=== PATIENT | female | born 1960 | race Caucasian/White ===

== ENCOUNTER 2017-02-16 22:22 | Inpatient (IN) | payer OTHER ==
--- NOTE | ~2017-02-16 | CN ---
Consultation Report [place] [id number] [place]. [address] NAME: GRISELDA ROCK : 58 STATUS : ADM IN [facility]#: [id number] AGE: 56 ADM/REG DATE : 02/17/17 MR#: [id number] REPORT SERV DATE: 02/20/17 DICTATED BY: MICHAEL LANZA DATE: 02/20/17 REPORT STATUS : Draft TRANSCRIBED BY: GLORIA DATE: 02/20/17 CONSULTATION. DATE OF CONSULTATION: Ms. Griselda Rock is a 56-year-old female with a long history of hypertension with left ventricle hypertrophy, who now enters with lower extremity infection, admitted directly to Podiatry. CVD PHYSICIAN: Dr. Schmidt. FAMILY PHYSICIAN: Dr. Katherine Tejeda. HISTORY OF PRESENT ILLNESS: Ms. Rock is admitted directly from Podiatry for cellulitis to the right lower extremity with history of diabetes. We are following her for hypertension with left ventricular hypertrophy. REVIEW OF SYSTEMS: Negative for chest pain, chest discomfort, syncope, palpitations, orthopnea, change in lower extremity edema, significant change in weight, significant change in bowel or bladder habit. SOCIAL HISTORY: She is fairly inactive. is in attendance. She does not drink or smoke. FAMILY HISTORY: Negative for early heart disease. PHYSICAL EXAMINATION: VITAL SIGNS: Blood pressure 154/79, pulse 68, mildly febrile. GENERAL: Resting comfortably at this time. She is alert and cooperative. LUNGS: Bilateral breath sounds are heard. Respiratory effort is normal. HEART: Precordium is quiet. Heart sounds are distant. No murmur or gallop is appreciated. ABDOMEN: Bowel sounds are positive. EXTREMITIES: Deferred. LABORATORY EVALUATION: Creatinine is 1.8 consistent with chronic renal insufficiency. White count is elevated. Troponin is borderline. BNP is elevated. ASSESSMENT: At this time, she appears to be slightly volume overloaded by lab. We will plan to gently diurese as needed. JOSEMANUEL/GLORIA Michael Consultation Report [place] [address] [place]. [address] NAME: GRISELDA ROCK : 58 STATUS : ADM IN PAT#: [id number] AGE: 56 ADM/REG DATE : 02/17/17 MR#: [id number] REPORT SERV DATE: 02/20/17 DICTATED BY: MICHAEL LANZA DATE: 02/20/17 REPORT STATUS : Draft TRANSCRIBED BY: MODDevika DATE: 02/20/17 Kendall Lanza / [id number] CC: MD CHICHI Driscoll JENNY
--- NOTE | ~2017-02-16 | DS ---
Discharge Summary [facility] [address] [place] [place]. [address] NAME: KRIS JANE : 58 STATUS : DIS IN PAT#: [id number] AGE: 56 ADM/REG DATE : 02/17/17 MR#: [id number] REPORT SERV DATE: 03/01/17 DICTATED BY: HONEY CHENG DATE: 02/28/17 REPORT STATUS : Draft TRANSCRIBED BY: MODL DATE: 02/28/17 ADMISSION DATE: 02/17/2017 DISCHARGE DATE: 02/28/2017 HISTORY OF PRESENT ILLNESS: This is a 56-year-old female. She has a known history of CKD 3, baseline about 1.3; diabetic ulcers in the past; osteomyelitis, requiring foot amputation as well; known history of ischemic cardiomyopathy with chronic systolic heart failure, LVEF 30%; known exposure to MSSA and Pseudomonas; hypertension; insulin-dependent diabetes; and benign-appearing fatty abdominal mass, 6.8 x 5.3 x 6.5 cm in 2013 notation. The patient came in with right leg swelling and redness, bruise quality; ecchymosis; and cellulitis. The patient as a result was seen by Dr. Adair for which it was determined a diabetic foot infection, osteomyelitis with known history of resulting transmetatarsal amputation of the right in 09/2016. Temperature of 101.2, sepsis. MRI showing yet again osteomyelitis of the residual fifth metatarsal. On 02/18/2017, the patient had a resection for the metatarsal bone down to the base, was on vancomycin and Zosyn. Culture grew out Staph hemolyticus Enterococcus faecalis. With concern for residual osteomyelitis without a pathology report to help assess the question, we will continue four more days of IV Unasyn. She did have some mild hypertension after getting 12.5 of losartan. As a result, she was seen by Cardiology. We maintained good diuresis. Recommendation for Bumex two p.o. b.i.d. DISCHARGE MEDICATIONS: Aspirin 81 p.o. daily; Bumex 2 mg p.o. b.i.d.; Zaroxolyn 2.5 p.o. every other day; iron sulfate 300 p.o. t.i.d. with meals; carvedilol 6.25 p.o. b.i.d., hold for systolic less than 100; Flonase nasal spray; NovoLog sliding scale; lactulose 30 mL p.o. daily, titrate to two bowel movements a day; Claritin 10 p.o. daily; mag oxide 400 p.o. daily; Zaroxolyn 2.5 p.o. every other day; Singulair 10 p.o. daily; KCl 20 mEq p.o. daily; as well as Unasyn q.6 h. IV for four more days; Levemir or Lantus 18 units subcutaneous at bedtime; albuterol p.r.n.; and losartan 6.25 p.o. daily, hold if systolic less than 100. The patient at one time had a potential hypertensive episode with getting only 12.5 of losartan, she may be very sensitive to the losartan dosing. I had a concern for fatty liver disease, consider possible Aldactone as an outpatient to augment her diuresis. Consider possible chronic liver disease workup as an outpatient as well. The patient is amenable for discharge. To follow up with Nephrology as well. CONSULTS: Cardiology, ID, and Podiatry. PROCEDURES: See above. DISCHARGE DIAGNOSES: See above. All questions were answered, it took over 30 minutes to do. DICTATED BY: Honey Cheng DO Discharge Summary [address] [address] NAME: KRIS JANE : 58 STATUS : DIS IN [facility]#: [id number] AGE: 56 ADM/REG DATE : 02/17/17 MR#: [id number] REPORT SERV DATE: 03/01/17 DICTATED BY: HONEY CHENG DATE: 02/28/17 REPORT STATUS : Draft TRANSCRIBED BY: GLORIA DATE: 02/28/17 BHARAT/GLORIA Honey Cheng DO / [id number] CC: DO Sharron Vera
--- NOTE | ~2017-02-16 | HP ---
History And Physical [place] [id number] [facility] [place]. [address] NAME: KRIS JANE : 58 STATUS : ADM IN [facility]#: [id number] AGE: 56 ADM/REG DATE : 02/17/17 MR#: [id number] REPORT SERV DATE: 02/17/17 DICTATED BY: DAVID OAKES DATE: 02/17/17 REPORT STATUS : Draft TRANSCRIBED BY: MODL DATE: 02/17/17 DATE OF ADMISSION: 02/17/2017 CHIEF COMPLAINT: A 56-year-old female presenting with right leg swelling, redness, and heat. HISTORY OF PRESENTING ILLNESS: The patient's history was obtained through careful interview with the patient and , coupled with review of [facility] and [facility] medical records. The patient states that just in the last 24 hours, she has had increasing swelling, redness, and tenderness of her right lower extremity. She describes right leg and foot pain, "bruised" quality pain, 3/10 severity that is annoying. She has had weeping serous-like discharge, but no purulent discharge described. She has a chronic right foot ulcer, followed by Dr. Back that she believes is stable. For a few days, she has had fevers and chills. She has had some sinus drainage with a nonproductive cough. No shortness of breath. No chest pain. No nausea or vomiting. No diarrhea. She claims her diabetes is under good control. REVIEW OF SYSTEMS: Otherwise, a 14-point review of systems was obtained and was negative. PAST MEDICAL HISTORY: 1. Diabetes. 2. Diabetic ulcers with osteomyelitis and foot amputation. 3. Chronic kidney disease stage 3, baseline creatinine of 1.3 to 1.5. 4. Hypertension. 5. Dyslipidemia. 6. Systolic congestive heart failure, ejection fraction 25% to 30%. 7. Urinary retention. 8. MSSA and Pseudomonas. 9. Benign-appearing fatty abdominal mass, 6.8 x 5.3 x 6.5 cm characterized in 2012. PAST SURGICAL HISTORY: Amputation and abdominal wall abscess. ALLERGIES: SULFA. SOCIAL HISTORY: No tobacco abuse. No alcohol abuse. Is . Has no children. Lives in [place], [place]. FAMILY HISTORY: Heart disease and diabetes. CURRENT MEDICATIONS: Include albuterol inhaler, Tessalon Perles, Coreg 12.5 mg p.o. b.i.d., iron supplement, Flonase, folic acid, Lasix 60 mg p.o. b.i.d., sliding-scale insulin, Levemir 15 units at bedtime, Claritin 10 mg p.o. daily, Cozaar 6.25 mg p.o. b.i.d., History And Physical [address] [address] NAME: KRIS JANE : 58 STATUS : ADM IN [facility]#: [id number] AGE: 56 ADM/REG DATE : 02/17/17 MR#: [id number] REPORT SERV DATE: 02/17/17 DICTATED BY: DAVID OAKES DATE: 02/17/17 REPORT STATUS : Draft TRANSCRIBED BY: GLORIA DATE: 02/17/17 magnesium, Singulair, potassium 20 mEq p.o. daily, Phenergan, and Santyl. PHYSICAL EXAMINATION: VITAL SIGNS: Temperature 98.6, pulse 71, blood pressure 121/77, respiratory rate 22, O2 saturation 91% on room air. GENERAL: A pleasant, cooperative female, in no evidence of acute distress. HEENT: Pupils equal, round, and reactive to light. No conjunctival pallor. No scleral icterus. Nares are patent. Oropharynx is clear of obstruction. Moist mucous membranes. NECK: Trachea midline. No thyromegaly. LYMPH: No cervical lymphadenopathy. No supraclavicular lymphadenopathy. RESPIRATORY: Clear to auscultation at bases. No wheezes, rales, or rhonchi. Normal respiratory effort. CARDIOVASCULAR: Regular rate and rhythm. No murmurs, rubs, or gallops. The patient has chronic-appearing lower extremity edema with swelling of the right side more than left. ABDOMEN: Soft, nontender, nondistended. Normal bowel sounds auscultated throughout. No hepatosplenomegaly. DERMATOLOGICAL: The patient's right lower extremity shows erythema, heat, swelling, and tenderness. She also has a large diabetic ulceration under her right foot, but with no surrounding erythema there or no purulent drainage. No necrotic appearance. Left lower extremity shows no pallor, no cyanosis. Warm and dry extremity. PSYCHIATRIC: Normal affect. Good mood. Alert and oriented x3. LABORATORY DATA: White blood count 16.1, hemoglobin 11, hematocrit 34, platelets 190. Sodium 127, potassium 4.4, chloride 98, bicarb 29, BUN 52, creatinine 1.92 from baseline creatinine of about 1.4 to 1.5, glucose 168, albumin 2.3, total bilirubin 1.8. STUDIES: Chest x-ray by my own evaluation shows cardiomegaly. ASSESSMENT AND PLAN: 1. Right leg cellulitis. Check blood cultures. Place on IV vancomycin for history of staph and strep infections and place on IV Zosyn. For history of Pseudomonas, check venous Doppler ultrasound of lower extremity. 2. Right foot diabetic ulcer. Check ESR. Check MRI of the foot to rule out osteomyelitis. Consult Dr. Back, lard maker. 3. Diabetes. Check hemoglobin A1c. Continue premeal insulin, basal insulin, and sliding scale insulin. 4. Acute kidney injury on chronic kidney disease stage 3. Place on IV fluids. Hold Lasix for now. 5. Chronic systolic congestive heart failure. Ejection fraction 25% to 30%. Monitor volume status closely. KPL/MODL David Oakes M.D. History And Physical [address] [address] NAME: KRIS JANE : 58 STATUS : ADM IN [facility]#: [id number] AGE: 56 ADM/REG DATE : 02/17/17 MR#: [id number] REPORT SERV DATE: 02/17/17 DICTATED BY: DAVID OAKES DATE: 02/17/17 REPORT STATUS : Draft TRANSCRIBED BY: GLORIA DATE: 02/17/17 / [id number] CC: MD LISA Driscoll D.PMurray
--- NOTE | ~2017-02-16 | OP ---
Record Of Operation [facility] [address] [place]. [address] NAME: KRIS JANE : 58 STATUS : ADM IN PAT#: [id number] AGE: 56 ADM/REG DATE : 02/17/17 MR#: [id number] REPORT SERV DATE: 02/25/17 DICTATED BY: BENIGNO BACK DATE: 02/25/17 REPORT STATUS : Draft TRANSCRIBED BY: MODDevika DATE: 02/25/17 DATE OF PROCEDURE: 02/18/2017 SURGERY PERFORMED: [facility]. PREOPERATIVE DIAGNOSIS: Osteomyelitis, right foot. POSTOPERATIVE DIAGNOSIS: Osteomyelitis, right foot. PROCEDURE: I and D, right foot with excision right 5th metatarsal head. Application of wound VAC, right foot. PATHOLOGY: Bone and soft tissue sent for histopathologic analysis as well as deep tissue cultures for Gram stain, culture and sensitivity. ANESTHESIA: General. HEMOSTASIS: 259 mmHg pneumatic calf tourniquet. ESTIMATED BLOOD LOSS: Less than 5 mL. COMPLICATIONS: None. INDICATIONS: This is a 56-year-old white female with longstanding history of complications associated with diabetic neuropathy. The patient has had history of a right transmetatarsal amputation. The patient has had a residual wound on the right foot for some time since that procedure for which she has been receiving local wound care. The patient was seen in the office recently. The wound appeared to be stable and it was recommended that the patient undergo application of a dermal collagen allograft to help facilitate wound healing along with use of a wound VAC. A few days later the patient presented to the emergency department with concerns of increased swelling and redness in the right foot as well as concern of fever and chills. The patient was admitted to [facility]. MR examination of right foot revealed that there was osteomyelitis in the distal aspect of the residual right 5th metatarsal. Upon clinical examination in the hospital, it was noted that there was a sinus tract through the center of the ulcer tracking to bone consistent with osteomyelitis that was not present on patient's previous office examination. Based on these clinical and radiographic findings, it was recommended the patient undergo incision and drainage of the right foot to remove any necrotic tissue in the ulceration including removal of the infected bone. Discussed with patient the alternatives, benefits, possible complications of surgical procedure as well as the procedure and recovery in great detail. Discussed with the patient that we will reapply the wound VAC to help facilitate wound healing. Discussed with patient once again that once infections resolve, we can reconsider application of skin graft to help facilitate wound healing. No problems or guarantees were given. Patient is scheduled for surgery. BRIEF SUMMARY OF OPERATION: The patient was brought to the operating room and transferred to [address] [address] NAME: KRIS JANE : 58 STATUS : ADM IN PAT#: [id number] AGE: 56 ADM/REG DATE : 02/17/17 MR#: [id number] REPORT SERV DATE: 02/25/17 DICTATED BY: BENIGNO BACK DATE: 02/25/17 REPORT STATUS : Draft TRANSCRIBED BY: GLORIA DATE: 02/25/17 operating table in supine position. Appropriate monitoring including EKG, blood pressure, pulse oximeter were attached to the patient and found to be in working order. IV access was established on the floor and the patient has been receiving IV antibiotic therapy per the Infectious Disease Service. After patient was identified by the surgeon, general anesthesia was induced. The patient's right foot and leg were prepped and draped in usual sterile manner. Right foot was elevated and pneumatic calf tourniquet was raised to 250 mmHg. Attention was directed towards the ulceration of the distal residual right foot over the area of the residual right 5th metatarsal. A circumferential incision in a full-thickness fashion was made around the extent of the ulceration and the hypertrophic granular tissue was removed via sharp dissection. The sinus tract was opened, and at this time, deep tissue cultures were taken for Gram stain, culture and sensitivity. Bone was exposed and this distal residual right 5th metatarsal was removed with a sagittal saw. Resected bone was sent for histopathologic analysis. Operative site was copiously irrigated with 3000 mL normal saline via pulse lavage. Once pulse irrigation was completed, any residual necrotic material was removed via sharp excisional debridement down to the level of subcutaneous tissue, deep fascia, and muscle. A wound VAC was applied to the defect and set to 125 mm mmHg continuous negative pressure. The tourniquet was let down and cap refill was noted to return to distal residual right foot immediately and be well within normal limits under three seconds. A Kerlix roll gauze dressing was applied over the wound VAC to protect the operative site. The patient tolerated procedure and anesthesia well. The patient left the operating room, returned to her recovery room with vital signs stable and vital signs intact. The patient be readmitted to the floor at [facility] for continued IV antibiotic therapy and postoperative care including wound care consultation for wound VAC changes. It was noted that patient had significant edema to bilateral lower extremity and a cardiology consultation has been ordered to evaluate for potential congestive heart failure. We will follow up the patient on floor. /GLORIA Benigno Back D.P.M. / [id number] CC: DO CHICHI Vera JENNY
--- NOTE | ~2017-02-16 | IDS ---
Interim Discharge Summary [facility] [address] [place]. [address] NAME: KRIS JANE : 58 STATUS : ADM IN PAT#: [id number] AGE: 56 ADM/REG DATE : 02/17/17 MR#: [id number] REPORT SERV DATE: 02/21/17 DICTATED BY: CASSIE HUGO DATE: 02/21/17 REPORT STATUS : Draft TRANSCRIBED BY: MODL DATE: 02/21/17 ADMISSION DATE: 02/17/2017 DISCHARGE DATE: HISTORY OF PRESENT ILLNESS: The patient is a 56-year-old female with a history of diabetes type 2, heart failure with reduced EF, ABDOULAYE on CKD, and morbid obesity, who presented to the hospital with a complaint of right leg swelling, redness, and heat. For further details, please refer to H and P dictated by Dr. Beto Barrios on 02/17/2017. HOSPITAL COURSE: Upon presentation to the hospital, the patient obtained an MRI which was positive for osteomyelitis. Podiatry was subsequently consulted, and status post their evaluation, the patient was taken to the OR for a wound debridement with subsequent wound VAC placement. Status post placement of a wound VAC, the patient's symptoms have progressively improved with continued resolution of the erythema on her right lower extremity. Also at the time of presentation, the patient was in exacerbation of heart failure with reduced EF. Her last EF was 20% to 30%. The patient was started on IV Lasix 40 mg IV with poor response and Lasix was increased to 60 mg with subsequent improved response and significant improvement in her volume status. During this hospitalization, the patient has also been followed by Podiatry. Given her volume overload, Podiatry consulted Cardiology. For further details, refer to Cardiology consultation note by Dr. Lanza on 02/20/2017. The patient has remained hemodynamically stable and has progressively improved. Her white count is currently trending down. Her volume status is also improving. Also, status post increasing her Lasix, her creatinine has started to trend down. Currently, her creatinine is 1.48. She has remained hemodynamically stable. Disposition now pending clearance from Podiatry for patient to be discharged. INTERIM DISCHARGE DIAGNOSES: 1. Right lower extremity osteomyelitis. 2. Heart failure with reduced ejection fraction decompensated. 3. Leukocytosis. 4. Acute kidney injury. 5. Chronic kidney disease, stage 3. 6. Diabetes type 2. 7. Morbid obesity. IMAGIN. MRI of the right lower extremity: Impression, osteomyelitis identified in the remaining portion of the fifth metatarsal bone sparing, sparing of the base is noted. Digits 1 through 4 intact, status post prior amputation. 2. Venous Doppler ultrasound of the right lower extremity. Impression, small saphenous vein thrombosis identified. Recommend repeat exam in three to five days to exclude propagation into the deep system. PLAN: We will repeat venous Doppler ultrasound as recommended to re-evaluate superficial thrombus noted on previous study. Interim Discharge Summary [address] [address] NAME: KRIS JANE : 58 STATUS : ADM IN [facility]#: [id number] AGE: 56 ADM/REG DATE : 02/17/17 MR#: [id number] REPORT SERV DATE: 02/21/17 DICTATED BY: CASSIE HUGO DATE: 02/21/17 REPORT STATUS : Draft TRANSCRIBED BY: GLORIA DATE: 02/21/17 DISPOSITION: The patient is currently on wound VAC, being followed by Podiatry. Her volume status significantly improved. Likely, her volume status significantly improved, and her kidney function is also improving. Likely, the patient can be discharged in a couple of days after clearance from Podiatry. Final discharge planning will be deferred to oncoming hospitalist. CRISPIN/GLORIA Cassie Hugo MD / [id number] CC: MD CHICHI Driscoll JENNY
--- NOTE | ~2017-02-16 | CN ---
Consultation Report [facility] [address] [place]. [address] NAME: KRIS JANE : 58 STATUS : ADM IN PAT#: [id number] AGE: 56 ADM/REG DATE : 02/17/17 MR#: [id number] REPORT SERV DATE: 02/22/17 DICTATED BY: VERÓNICA ADAIR DATE: 02/22/17 REPORT STATUS : Draft TRANSCRIBED BY: MODL DATE: 02/22/17 INFECTIOUS DISEASE CONSULTATION DATE OF CONSULTATION: 02/22/2017 REASON FOR CONSULTATION: Antibiotic recommendations. HISTORY OF PRESENT ILLNESS: This is a 56-year-old female known to me from consultation back in late August when she had a diabetic foot infection with osteomyelitis that eventually led to a transmetatarsal amputation of her right foot on 09/24. Cultures grew sensitive Staph and gram-negative rods. She completed antibiotic therapy a week later. She had a regular followup since then and apparently had been doing okay until just the 24 hours prior to her readmission on 02/17/2017 when she developed increasing swelling and redness and pain of her right foot and on admission was described as having an ulcer on the distal right foot with some drainage and had a fever up to 101.2 on 02/17/2017 and had a leukocytosis on admission of 16,100. MRI scan was consistent with osteomyelitis of the part of the residual 5th metatarsal. The patient was taken to the operating room on 02/18/2017 and had resection of further metatarsal bone down to the base. The patient has been on vancomycin and Zosyn since admission. Fevers have resolved, but she still has a mild leukocytosis with today's white count of being 13.6. Cultures from surgery have grown sparse Staph haemolyticus and Enterococcus faecalis. There is no pathology report. The patient has some pain in the foot. No other major complaints. She does note that she is having some loose stools. No abdominal pain or cramping. Plans are being made for her to go to a skilled setting at [facility]. PAST MEDICAL HISTORY: As outlined on the previous consultation and most notable for congestive heart failure, hypertension, and diabetes. ALLERGIES: SULFA. PRESENT MEDICATIONS: In addition to the antibiotics mentioned include Coreg, Lovenox, iron, Flonase, folic acid, Lasix, insulin, Claritin, Cozaar, magnesium oxide, and Singulair. SOCIAL HISTORY: She lives with her who is here in the room with her. Nonsmoker. FAMILY HISTORY: Noncontributory. REVIEW OF SYSTEMS: Otherwise negative. No nausea or vomiting. PHYSICAL EXAMINATION: VITAL SIGNS: The patient weighs 122 kg. She is afebrile. Blood pressure 163/74, pulse 76, and respiratory rate 18. GENERAL: She is somewhat sleepy, but no acute distress. Consultation Report [address] [place]. [address] NAME: KRIS JANE : 58 STATUS : ADM IN [facility]#: [id number] AGE: 56 ADM/REG DATE : 02/17/17 MR#: [id number] REPORT SERV DATE: 02/22/17 DICTATED BY: VERÓNICA ADAIR DATE: 02/22/17 REPORT STATUS : Draft TRANSCRIBED BY: GLORIA DATE: 02/22/17 HEAD AND NECK: Exam shows a clear oral cavity without thrush. Supple neck. LUNGS: Clear to auscultation anteriorly. CARDIAC: Regular rate and rhythm. Normal S1, S2. A soft 1/6 systolic ejection murmur, left sternal border. ABDOMEN: Obese, soft, nontender. Bowel sounds are somewhat hyperactive. Nontender. EXTREMITIES: Right foot has a gauze dressing covering a VAC dressing. The lower leg does have some mild edema and warmth. The patient has a peripheral IV without phlebitis. LABORATORY STUDIES: White blood cell count 13.6, hemoglobin 9.7, platelets 309. Creatinine 1.20, albumin 1.8, alkaline phosphatase 216. Other liver function tests are normal. MICROBIOLOGY STUDIES: Urinalysis on admission, on 02/16/2017, showed small leukocyte esterase, 13 white blood cells. Urine culture negative. Blood cultures negative. Wound cultures as mentioned. IMAGING STUDIES: As mentioned above. In addition, chest x-ray on 02/17/2017 was negative. Lower extremity ultrasound yesterday negative for DVT. IMPRESSION: Osteomyelitis of the residual right fifth metatarsal, now status post surgery on 02/18/2017 to remove most of this remaining metatarsal after previous TMA. The issue here is the degree of our concern that she could have residual osteomyelitis. We do not have pathology report to help assess that question. PLAN: 1. We will change antibiotics to Unasyn. 2. We will discuss duration of the IV antibiotics with Dr. Back based on his intraoperative assessment. 3. If her diarrhea worsens, check C. difficile. HH/MODL Verónica Adair M.D. / [id number] CC: DO CHICHI Vera JENNY
[~2017-02-16 22:22] MED LIST: ACET500CAP PO; AFLIBERCEPT OPH; ATV1 PO; BACDS PO; BREO ELLIPTA INH; BYETTA SC; CAT1 PO; CEFADROXIL1 GM PO; CIP2 PO; COREG12 PO; FESO4 PO; FLONASE NAS; GLUCOSE PO; GLUCOSE TAB PO; GLUCPH PO; KDUR20 PO; KLOR-CON M2020 MEQ PO; L40 PO; LANTUSCART SC; LEVEMIR SC; MAGOX4 PO; MAX25 PO; MULTIVIT/MIN PO; NORV10 PO; NOVOLOG SC; NOVOPEN SC; PCET PO; PEP20 PO; PRIN10 PO; PRINZIDE1 TA1 PO; SEPTRA DS1 TAB PO; SINGULAIR1 PO; T PO; TESS PO; ULTRAM50 PO; VENTOLIN HFA INH; VITC500 PO; ZINC220C PO; ZOFRAN ODT4 MG PO/SL; ZOFRAN4 PO; ZYRTEC ALLGY10 MG PO; [UNRECOGNIZED DRUG - OTHER] PO
[2017-02-16 23:16] LABS: BASOPHILS 0.4 %; BASOPHILS ABSOLUTE 0.06 10/3/uL (0.0-0.16); EOSINOPHILS 0.7 %; EOSINOPHILS ABSOLUTE 0.11 10/3/uL (0.0-0.53); ER CBC TAT 0 Hrs 09 Mins; HEMATOCRIT 34.1 % (36.0-48.0); HEMOGLOBIN 10.6 g/dL (12.0-16.0); IMMATURE GRANULOCYTES 0.5 %; IMMATURE GRANULOCYTES ABSOLUTE 0.08 10/3/uL (0.0-0.11); LYMPHOCYTES ABSOLUTE 1.61 10/3/uL (0.67-4.30); MANUAL DIFF NO %; MEAN CORPUS HGB CONC 31.1 g/dL (32.0-36.0); MEAN CORPUSCULAR HEMOGLOB 22.8 pg (26.0-34.0); MEAN CORPUSCULAR VOLUME 73.3 fL (80-100); MONOCYTES 7.2 %; MONOCYTES ABSOLUTE 1.16 10/3/uL (0.21-1.20); NEUTROPHILS 81.2 %; NEUTROPHILS ABSOLUTE 13.06 10/3/uL (2.02-8.40); PLATELET COUNT 190 10/3/uL (150-400); RBC DISTRIBUTION WIDTH 18.9 % (12.0-16.0); RED CELL COUNT 4.65 10/6/uL (4.0-5.6); WHITE BLOOD CELLS 16.1 10/3/uL (4.5-10.5)
[2017-02-16 23:27] LABS: CALCIUM, SERUM 9.2 MG/DL (8.5-10.4); CHLORIDE, SERUM 98 MMOL/L (96-112); CO2 (CARBON DIOXIDE) 29 MMOL/L (24-34); CREATININE 1.92 MG/DL (0.55-1.02); GFR AFRICAN AMERICAN 33 ML/MIN (>=60); GFR NON AFRICAN AMERICAN 28 ML/MIN (>=60); GLUCOSE, SERUM 168 MG/DL (60-99); POTASSIUM, SERUM 4.4 MMOL/L (3.5-5.3); SGOT(AST) 32 U/L (5-40); SGPT(ALT) 26 U/L (5-65); TOTAL PROTEIN 7.6 G/DL (6.0-8.5)
[2017-02-16 23:31] LABS: ASCORBIC ACID (UR NOT ORDER) NEG (NEG); BILIRUBIN, URINE SMALL (NEG); ER URINALYSIS TAT 0 Hrs 00 Mins; KETONE, URINE NEGATIVE (NEG); LEUKOCYTE ESTERASE(NOT OR SMALL (NEG); NITRITE (URINE) NEG (NEG); WBC (NOT ORDERED) (RFLEX) 13 (0-5)
[2017-02-16 23:37] LABS: A/G RATIO 0.4 (0.7-1.9); ALBUMIN 2.3 G/DL (3.5-5.0); ALKALINE PHOSPHATASE 219 U/L (45-117); BUN (BLOOD UREA NITROGEN) 52 MG/DL (6-23); GLOBULIN 5.3 G/DL (2.5-4.1); SODIUM, SERUM 127 MMOL/L (135-148); TOTAL BILIRUBIN 1.8 MG/DL (0-1.2)
[2017-02-16 23:49] LABS: PLATELET ESTIMATE ADQ (ADEQUATE)
[2017-02-16 23:50] LABS: ANISOCYTOSIS 1+ (5-10/OIF) (0-5/OIF); HYPOCHROMIA 1+ (3-10/OIF) (0-2/OIF); MICROCYTES 1+ (5-10/OIF) (0-5/OIF)
[2017-02-16 23:51] LABS: RBC MORPHOLOGY ABN (NORMAL)
[2017-02-17] MEDS ORDERED: L20 PO (01:01)
[2017-02-17] MEDS ORDERED: FOLIC PO (01:02)
[2017-02-17] MEDS ORDERED: DEXTROMETHORPHAN PO (01:02)
[2017-02-17] MEDS ORDERED: PROMETHAZINE PO (01:02)
[2017-02-17] MEDS ORDERED: KLOR-CON M2020 MEQ PO (01:03)
[2017-02-17] MEDS ORDERED: LEVEMFLXPN SC (01:03)
[2017-02-17] MEDS ORDERED: NOVOPEN SC (01:04)
[2017-02-17] MEDS ORDERED: SANTYL OINTMENT TOP (01:05)
[2017-02-17] MEDS ORDERED: FERROUS SULF325 M1 PO (01:05)
[2017-02-17] MEDS ORDERED: SINGULAIR1 PO (01:06)
[2017-02-17] MEDS ORDERED: PROAIR HFA INH (01:06)
[2017-02-17] MEDS ORDERED: MAGOX4 PO (01:07)
[2017-02-17] MEDS ORDERED: CLARIT10 PO (01:08)
[2017-02-17] MEDS ORDERED: FLONASE NAS (01:08)
[2017-02-17] MEDS ORDERED: COREG12 PO (01:09)
[2017-02-17] MEDS ORDERED: COZ25 PO (01:10)
[2017-02-17] MEDS ORDERED: TESS PO (01:11)
[2017-02-17 10:00] LABS: INTERNATIONAL NORMAL RATI 1.5 UNITS (-); PARTIAL THROMBO TIME 46.8 SEC (22.5-37.2); PROTIME (NOT ORD) 17.5 SEC (12.0-14.5)
[2017-02-17 10:07] LABS: HEMOGLOBIN 9.4 g/dL (12.0-16.0); MEAN CORPUS HGB CONC 31.3 g/dL (32.0-36.0); MEAN CORPUSCULAR HEMOGLOB 22.8 pg (26.0-34.0); MEAN CORPUSCULAR VOLUME 72.6 fL (80-100); PLATELET COUNT 177 10/3/uL (150-400); RBC DISTRIBUTION WIDTH 18.9 % (12.0-16.0); RED CELL COUNT 4.13 10/6/uL (4.0-5.6); WHITE BLOOD CELLS 16.8 10/3/uL (4.5-10.5)
[2017-02-17 10:09] LABS: A/G RATIO 0.4 (0.7-1.9); BUN (BLOOD UREA NITROGEN) 51 MG/DL (6-23); CALCIUM, SERUM 8.3 MG/DL (8.5-10.4); CHLORIDE, SERUM 100 MMOL/L (96-112); CO2 (CARBON DIOXIDE) 27 MMOL/L (24-34); CREATININE 1.64 MG/DL (0.55-1.02); GFR AFRICAN AMERICAN 40 ML/MIN (>=60); GFR NON AFRICAN AMERICAN 34 ML/MIN (>=60); GLUCOSE, SERUM 163 MG/DL (60-99); PHOSPHORUS, SERUM 2.7 MG/DL (2.5-4.5); POTASSIUM, SERUM 4.2 MMOL/L (3.5-5.3); SGOT(AST) 24 U/L (5-40); SGPT(ALT) 20 U/L (5-65); TOTAL BILIRUBIN 1.7 MG/DL (0-1.2); TROPONIN I 0.04 NG/ML (<0.05)
[2017-02-17 10:10] LABS: ALKALINE PHOSPHATASE 196 U/L (45-117); MANUAL DIFF YES %; SODIUM, SERUM 134 MMOL/L (135-148)
[2017-02-17 10:12] LABS: B NATRIURETIC PEPTIDE (BNP) 1529.9 PG/ML (< 100.0)
[2017-02-17 10:21] LABS: ANISOCYTOSIS 1+ (5-10/OIF) (0-5/OIF); BAND NEUTROPHILS 15 %; BASOPHILS 1 %; BASOPHILS ABSOLUTE (CALC) 0.17 10/3/uL (0.0-0.16); EOSINOPHILS 1 %; EOSINOPHILS ABSOLUTE (CALC) 0.17 10/3/uL (0.0-0.53); LYMPHOCYTES 6 %; LYMPHOCYTES ABSOLUTE (CALC) 1.01 10/3/uL (0.67-4.30); MONOCYTES 2 %; MONOCYTES ABSOLUTE (CALC) 0.34 10/3/uL (0.21-1.20); NEUTROPHILS ABSOLUTE (CALC) 15.12 10/3/uL (2.02-8.40); PLATELET ESTIMATE ADQ (ADEQUATE); POLYCHROMASIA 1+ (2-5/OIF) (0-1/OIF); SEGMENTED NEUTROPHIL (0) 75 %; TOTAL NUCLEATED CELLS 100
[2017-02-17 11:33] LABS: SED RATE 96 MM/HR (0-20)
[2017-02-17 12:42] LABS: GLYCOHEMOGLOBIN (HbA1c) 7.4 % (4.7-6.1)
[2017-02-18 06:19] LABS: BASOPHILS 0.2 %; BASOPHILS ABSOLUTE 0.03 10/3/uL (0.0-0.16); EOSINOPHILS 2.3 %; HEMATOCRIT 29.7 % (36.0-48.0); HEMOGLOBIN 9.2 g/dL (12.0-16.0); IMMATURE GRANULOCYTES 0.5 %; IMMATURE GRANULOCYTES ABSOLUTE 0.06 10/3/uL (0.0-0.11); LYMPHOCYTES ABSOLUTE 1.55 10/3/uL (0.67-4.30); MEAN CORPUSCULAR HEMOGLOB 22.7 pg (26.0-34.0); MEAN CORPUSCULAR VOLUME 73.3 fL (80-100); MONOCYTES 6.6 %; MONOCYTES ABSOLUTE 0.86 10/3/uL (0.21-1.20); NEUTROPHILS 78.4 %; NEUTROPHILS ABSOLUTE 10.17 10/3/uL (2.02-8.40); PLATELET COUNT 185 10/3/uL (150-400); RED CELL COUNT 4.05 10/6/uL (4.0-5.6)
[2017-02-18 06:23] LABS: MANUAL DIFF NO %
[2017-02-18 06:40] LABS: A/G RATIO 0.4 (0.7-1.9); ALBUMIN 1.8 G/DL (3.5-5.0); ALKALINE PHOSPHATASE 203 U/L (45-117); CALCIUM, SERUM 8.6 MG/DL (8.5-10.4); CHLORIDE, SERUM 100 MMOL/L (96-112); CO2 (CARBON DIOXIDE) 27 MMOL/L (24-34); CREATININE 1.72 MG/DL (0.55-1.02); GFR AFRICAN AMERICAN 38 ML/MIN (>=60); GFR NON AFRICAN AMERICAN 32 ML/MIN (>=60); GLOBULIN 4.7 G/DL (2.5-4.1); POTASSIUM, SERUM 4.3 MMOL/L (3.5-5.3); SGOT(AST) 29 U/L (5-40); SGPT(ALT) 19 U/L (5-65); SODIUM, SERUM 134 MMOL/L (135-148); TOTAL BILIRUBIN 1.5 MG/DL (0-1.2); TOTAL PROTEIN 6.5 G/DL (6.0-8.5)
[2017-02-18 06:42] LABS: BUN (BLOOD UREA NITROGEN) 56 MG/DL (6-23); GLUCOSE, SERUM 117 MG/DL (60-99)
[2017-02-18 06:54] LABS: ANISOCYTOSIS 1+ (5-10/OIF) (0-5/OIF); HYPOCHROMIA 1+ (3-10/OIF) (0-2/OIF); PLATELET ESTIMATE ADQ (ADEQUATE); POLYCHROMASIA 1+ (2-5/OIF) (0-1/OIF)
[2017-02-19 07:00] LABS: BASOPHILS 0.3 %; BASOPHILS ABSOLUTE 0.04 10/3/uL (0.0-0.16); EOSINOPHILS 2.3 %; EOSINOPHILS ABSOLUTE 0.27 10/3/uL (0.0-0.53); HEMATOCRIT 27.7 % (36.0-48.0); HEMOGLOBIN 8.6 g/dL (12.0-16.0); IMMATURE GRANULOCYTES 0.8 %; IMMATURE GRANULOCYTES ABSOLUTE 0.09 10/3/uL (0.0-0.11); LYMPHOCYTES ABSOLUTE 1.16 10/3/uL (0.67-4.30); MEAN CORPUSCULAR HEMOGLOB 22.6 pg (26.0-34.0); MEAN CORPUSCULAR VOLUME 72.7 fL (80-100); MEAN PLATELET VOLUME 11.7 fL (9.2-13.0); MONOCYTES 7.2 %; MONOCYTES ABSOLUTE 0.84 10/3/uL (0.21-1.20); NEUTROPHILS 79.4 %; NEUTROPHILS ABSOLUTE 9.19 10/3/uL (2.02-8.40); PLATELET COUNT 220 10/3/uL (150-400); RBC DISTRIBUTION WIDTH 19.2 % (12.0-16.0); RED CELL COUNT 3.81 10/6/uL (4.0-5.6); WHITE BLOOD CELLS 11.6 10/3/uL (4.5-10.5)
[2017-02-19 07:05] LABS: A/G RATIO 0.3 (0.7-1.9); ALBUMIN 1.7 G/DL (3.5-5.0); BUN (BLOOD UREA NITROGEN) 57 MG/DL (6-23); CALCIUM, SERUM 8.5 MG/DL (8.5-10.4); CHLORIDE, SERUM 102 MMOL/L (96-112); CO2 (CARBON DIOXIDE) 27 MMOL/L (24-34); CREATININE 1.69 MG/DL (0.55-1.02); GFR AFRICAN AMERICAN 38 ML/MIN (>=60); GFR NON AFRICAN AMERICAN 33 ML/MIN (>=60); POTASSIUM, SERUM 4.6 MMOL/L (3.5-5.3); SGOT(AST) 27 U/L (5-40); SGPT(ALT) 18 U/L (5-65); SODIUM, SERUM 137 MMOL/L (135-148); TOTAL BILIRUBIN 1.2 MG/DL (0-1.2); TOTAL PROTEIN 6.7 G/DL (6.0-8.5)
[2017-02-19 07:06] LABS: ALKALINE PHOSPHATASE 217 U/L (45-117); GLUCOSE, SERUM 178 MG/DL (60-99)
[2017-02-19 07:09] LABS: MANUAL DIFF NO %
[2017-02-19 07:32] LABS: ANISOCYTOSIS 1+ (5-10/OIF) (0-5/OIF); PLATELET ESTIMATE ADQ (ADEQUATE)
[2017-02-19 08:14] LABS: SED RATE 99 MM/HR (0-20)
[2017-02-20 05:19] LABS: BASOPHILS 0.4 %; BASOPHILS ABSOLUTE 0.05 10/3/uL (0.0-0.16); EOSINOPHILS 2.3 %; EOSINOPHILS ABSOLUTE 0.29 10/3/uL (0.0-0.53); HEMATOCRIT 29.2 % (36.0-48.0); HEMOGLOBIN 9.1 g/dL (12.0-16.0); IMMATURE GRANULOCYTES 0.5 %; IMMATURE GRANULOCYTES ABSOLUTE 0.06 10/3/uL (0.0-0.11); LYMPHOCYTES 11.4 %; LYMPHOCYTES ABSOLUTE 1.46 10/3/uL (0.67-4.30); MEAN CORPUS HGB CONC 31.2 g/dL (32.0-36.0); MEAN CORPUSCULAR HEMOGLOB 22.9 pg (26.0-34.0); MEAN CORPUSCULAR VOLUME 73.4 fL (80-100); MEAN PLATELET VOLUME 11.3 fL (9.2-13.0); MONOCYTES 5.7 %; MONOCYTES ABSOLUTE 0.73 10/3/uL (0.21-1.20); NEUTROPHILS 79.7 %; NEUTROPHILS ABSOLUTE 10.26 10/3/uL (2.02-8.40); PLATELET COUNT 254 10/3/uL (150-400); RBC DISTRIBUTION WIDTH 19.2 % (12.0-16.0); RED CELL COUNT 3.98 10/6/uL (4.0-5.6); WHITE BLOOD CELLS 12.9 10/3/uL (4.5-10.5)
[2017-02-20 05:24] LABS: MANUAL DIFF NO %
[2017-02-20 05:40] LABS: A/G RATIO 0.4 (0.7-1.9); ALBUMIN 1.8 G/DL (3.5-5.0); ALKALINE PHOSPHATASE 263 U/L (45-117); BUN (BLOOD UREA NITROGEN) 58 MG/DL (6-23); CALCIUM, SERUM 8.4 MG/DL (8.5-10.4); CHLORIDE, SERUM 101 MMOL/L (96-112); CO2 (CARBON DIOXIDE) 28 MMOL/L (24-34); CREATININE 1.78 MG/DL (0.55-1.02); GFR AFRICAN AMERICAN 36 ML/MIN (>=60); GFR NON AFRICAN AMERICAN 31 ML/MIN (>=60); GLUCOSE, SERUM 145 MG/DL (60-99); POTASSIUM, SERUM 4.8 MMOL/L (3.5-5.3); SGOT(AST) 92 U/L (5-40); SGPT(ALT) 38 U/L (5-65); SODIUM, SERUM 136 MMOL/L (135-148); TOTAL BILIRUBIN 1.8 MG/DL (0-1.2); TOTAL PROTEIN 6.8 G/DL (6.0-8.5)
[2017-02-20 06:15] LABS: BAND NEUTROPHILS 5 %; BASOPHILS 1 %; BASOPHILS ABSOLUTE (CALC) 0.13 10/3/uL (0.0-0.16); EOSINOPHILS 1 %; EOSINOPHILS ABSOLUTE (CALC) 0.13 10/3/uL (0.0-0.53); LYMPHOCYTES 11 %; LYMPHOCYTES ABSOLUTE (CALC) 1.42 10/3/uL (0.67-4.30); MONOCYTES 6 %; MONOCYTES ABSOLUTE (CALC) 0.77 10/3/uL (0.21-1.20); NEUTROPHILS ABSOLUTE (CALC) 10.45 10/3/uL (2.02-8.40); SEGMENTED NEUTROPHIL (0) 76 %; TOTAL NUCLEATED CELLS 100
[2017-02-20 06:17] LABS: ANISOCYTOSIS 1+ (5-10/OIF) (0-5/OIF); PLATELET ESTIMATE ADQ (ADEQUATE); TOXIC GRANULATION 1+
[2017-02-21 06:17] LABS: BASOPHILS 0.5 %; BASOPHILS ABSOLUTE 0.06 10/3/uL (0.0-0.16); EOSINOPHILS 4.6 %; EOSINOPHILS ABSOLUTE 0.57 10/3/uL (0.0-0.53); HEMATOCRIT 29.9 % (36.0-48.0); HEMOGLOBIN 9.3 g/dL (12.0-16.0); IMMATURE GRANULOCYTES 1.1 %; IMMATURE GRANULOCYTES ABSOLUTE 0.13 10/3/uL (0.0-0.11); LYMPHOCYTES 11.5 %; LYMPHOCYTES ABSOLUTE 1.42 10/3/uL (0.67-4.30); MEAN CORPUS HGB CONC 31.1 g/dL (32.0-36.0); MEAN CORPUSCULAR HEMOGLOB 22.9 pg (26.0-34.0); MEAN CORPUSCULAR VOLUME 73.5 fL (80-100); MEAN PLATELET VOLUME 10.7 fL (9.2-13.0); MONOCYTES 5.6 %; MONOCYTES ABSOLUTE 0.69 10/3/uL (0.21-1.20); NEUTROPHILS 76.7 %; NEUTROPHILS ABSOLUTE 9.48 10/3/uL (2.02-8.40); PLATELET COUNT 246 10/3/uL (150-400); RBC DISTRIBUTION WIDTH 19.3 % (12.0-16.0); RED CELL COUNT 4.07 10/6/uL (4.0-5.6); WHITE BLOOD CELLS 12.4 10/3/uL (4.5-10.5)
[2017-02-21 06:20] LABS: MANUAL DIFF NO %
[2017-02-21 06:32] LABS: A/G RATIO 0.3 (0.7-1.9); ALBUMIN 1.7 G/DL (3.5-5.0); BUN (BLOOD UREA NITROGEN) 55 MG/DL (6-23); CALCIUM, SERUM 8.5 MG/DL (8.5-10.4); CHLORIDE, SERUM 103 MMOL/L (96-112); CO2 (CARBON DIOXIDE) 30 MMOL/L (24-34); CREATININE 1.48 MG/DL (0.55-1.02); GFR AFRICAN AMERICAN 45 ML/MIN (>=60); GFR NON AFRICAN AMERICAN 39 ML/MIN (>=60); GLOBULIN 4.9 G/DL (2.5-4.1); GLUCOSE, SERUM 134 MG/DL (60-99); POTASSIUM, SERUM 4.5 MMOL/L (3.5-5.3); SGOT(AST) 41 U/L (5-40); SGPT(ALT) 31 U/L (5-65); SODIUM, SERUM 138 MMOL/L (135-148); TOTAL PROTEIN 6.6 G/DL (6.0-8.5)
[2017-02-21 06:34] LABS: ALKALINE PHOSPHATASE 239 U/L (45-117); TOTAL BILIRUBIN 1.2 MG/DL (0-1.2)
[2017-02-22 06:58] LABS: BASOPHILS 0.2 %; BASOPHILS ABSOLUTE 0.03 10/3/uL (0.0-0.16); EOSINOPHILS ABSOLUTE 0.55 10/3/uL (0.0-0.53); HEMATOCRIT 31.4 % (36.0-48.0); HEMOGLOBIN 9.7 g/dL (12.0-16.0); IMMATURE GRANULOCYTES 0.6 %; IMMATURE GRANULOCYTES ABSOLUTE 0.08 10/3/uL (0.0-0.11); LYMPHOCYTES 8.6 %; LYMPHOCYTES ABSOLUTE 1.17 10/3/uL (0.67-4.30); MEAN CORPUS HGB CONC 30.9 g/dL (32.0-36.0); MEAN CORPUSCULAR HEMOGLOB 23.2 pg (26.0-34.0); MEAN CORPUSCULAR VOLUME 75.1 fL (80-100); MEAN PLATELET VOLUME 10.7 fL (9.2-13.0); MONOCYTES 4.5 %; MONOCYTES ABSOLUTE 0.62 10/3/uL (0.21-1.20); NEUTROPHILS 82.1 %; NEUTROPHILS ABSOLUTE 11.19 10/3/uL (2.02-8.40); PLATELET COUNT 309 10/3/uL (150-400); RBC DISTRIBUTION WIDTH 19.4 % (12.0-16.0); RED CELL COUNT 4.18 10/6/uL (4.0-5.6); WHITE BLOOD CELLS 13.6 10/3/uL (4.5-10.5)
[2017-02-22 07:03] LABS: MANUAL DIFF NO %
[2017-02-22 07:19] LABS: A/G RATIO 0.4 (0.7-1.9); ALBUMIN 1.8 G/DL (3.5-5.0); CALCIUM, SERUM 8.9 MG/DL (8.5-10.4); CHLORIDE, SERUM 101 MMOL/L (96-112); CO2 (CARBON DIOXIDE) 31 MMOL/L (24-34); GFR AFRICAN AMERICAN 58 ML/MIN (>=60); GFR NON AFRICAN AMERICAN 50 ML/MIN (>=60); GLOBULIN 4.9 G/DL (2.5-4.1); GLUCOSE, SERUM 133 MG/DL (60-99); POTASSIUM, SERUM 4.3 MMOL/L (3.5-5.3); SGOT(AST) 24 U/L (5-40); SGPT(ALT) 24 U/L (5-65); SODIUM, SERUM 140 MMOL/L (135-148); TOTAL BILIRUBIN 1.1 MG/DL (0-1.2); TOTAL PROTEIN 6.7 G/DL (6.0-8.5)
[2017-02-22 07:20] LABS: ALKALINE PHOSPHATASE 216 U/L (45-117); BUN (BLOOD UREA NITROGEN) 48 MG/DL (6-23)
[2017-02-23 06:13] LABS: BASOPHILS 0.2 %; BASOPHILS ABSOLUTE 0.02 10/3/uL (0.0-0.16); EOSINOPHILS 2.2 %; EOSINOPHILS ABSOLUTE 0.28 10/3/uL (0.0-0.53); HEMATOCRIT 31.6 % (36.0-48.0); HEMOGLOBIN 9.6 g/dL (12.0-16.0); IMMATURE GRANULOCYTES 0.6 %; IMMATURE GRANULOCYTES ABSOLUTE 0.08 10/3/uL (0.0-0.11); LYMPHOCYTES 8.7 %; LYMPHOCYTES ABSOLUTE 1.12 10/3/uL (0.67-4.30); MANUAL DIFF NO %; MEAN CORPUS HGB CONC 30.4 g/dL (32.0-36.0); MEAN CORPUSCULAR VOLUME 75.8 fL (80-100); MEAN PLATELET VOLUME 10.6 fL (9.2-13.0); MONOCYTES 4.7 %; MONOCYTES ABSOLUTE 0.61 10/3/uL (0.21-1.20); NEUTROPHILS 83.6 %; NEUTROPHILS ABSOLUTE 10.82 10/3/uL (2.02-8.40); PLATELET COUNT 330 10/3/uL (150-400); RBC DISTRIBUTION WIDTH 19.5 % (12.0-16.0); RED CELL COUNT 4.17 10/6/uL (4.0-5.6); WHITE BLOOD CELLS 12.9 10/3/uL (4.5-10.5)
[2017-02-23 06:23] LABS: BUN (BLOOD UREA NITROGEN) 45 MG/DL (6-23); CALCIUM, SERUM 8.9 MG/DL (8.5-10.4); CHLORIDE, SERUM 99 MMOL/L (96-112); CO2 (CARBON DIOXIDE) 32 MMOL/L (24-34); CREATININE 1.29 MG/DL (0.55-1.02); GFR AFRICAN AMERICAN 53 ML/MIN (>=60); GFR NON AFRICAN AMERICAN 46 ML/MIN (>=60); PHOSPHORUS, SERUM 2.7 MG/DL (2.5-4.5); POTASSIUM, SERUM 4.3 MMOL/L (3.5-5.3); SODIUM, SERUM 135 MMOL/L (135-148)
[2017-02-23 06:28] LABS: GLUCOSE, SERUM 178 MG/DL (60-99)
[2017-02-25 08:48] LABS: CALCIUM, SERUM 9.1 MG/DL (8.5-10.4); CHLORIDE, SERUM 99 MMOL/L (96-112); CO2 (CARBON DIOXIDE) 36 MMOL/L (24-34); CREATININE 1.11 MG/DL (0.55-1.02); GFR AFRICAN AMERICAN 64 ML/MIN (>=60); GFR NON AFRICAN AMERICAN 55 ML/MIN (>=60); GLUCOSE, SERUM 161 MG/DL (60-99); POTASSIUM, SERUM 4.8 MMOL/L (3.5-5.3); SODIUM, SERUM 138 MMOL/L (135-148)
[2017-02-25 08:50] LABS: BUN (BLOOD UREA NITROGEN) 39 MG/DL (6-23)
[2017-02-26 06:35] LABS: BASOPHILS 0.5 %; BASOPHILS ABSOLUTE 0.05 10/3/uL (0.0-0.16); EOSINOPHILS 5.7 %; EOSINOPHILS ABSOLUTE 0.53 10/3/uL (0.0-0.53); HEMATOCRIT 31.4 % (36.0-48.0); HEMOGLOBIN 9.3 g/dL (12.0-16.0); IMMATURE GRANULOCYTES 0.4 %; IMMATURE GRANULOCYTES ABSOLUTE 0.04 10/3/uL (0.0-0.11); LYMPHOCYTES 17.4 %; LYMPHOCYTES ABSOLUTE 1.62 10/3/uL (0.67-4.30); MEAN CORPUS HGB CONC 29.6 g/dL (32.0-36.0); MEAN CORPUSCULAR HEMOGLOB 22.5 pg (26.0-34.0); MEAN PLATELET VOLUME 10.4 fL (9.2-13.0); MONOCYTES 5.7 %; MONOCYTES ABSOLUTE 0.53 10/3/uL (0.21-1.20); NEUTROPHILS 70.3 %; NEUTROPHILS ABSOLUTE 6.54 10/3/uL (2.02-8.40); PLATELET COUNT 399 10/3/uL (150-400); RBC DISTRIBUTION WIDTH 19.9 % (12.0-16.0); RED CELL COUNT 4.13 10/6/uL (4.0-5.6); WHITE BLOOD CELLS 9.3 10/3/uL (4.5-10.5)
[2017-02-26 06:37] LABS: MANUAL DIFF NO %
[2017-02-26 06:42] LABS: BUN (BLOOD UREA NITROGEN) 38 MG/DL (6-23); CALCIUM, SERUM 9.2 MG/DL (8.5-10.4); CHLORIDE, SERUM 96 MMOL/L (96-112); CO2 (CARBON DIOXIDE) 37 MMOL/L (24-34); CREATININE 1.08 MG/DL (0.55-1.02); GFR AFRICAN AMERICAN 66 ML/MIN (>=60); GFR NON AFRICAN AMERICAN 57 ML/MIN (>=60); POTASSIUM, SERUM 4.2 MMOL/L (3.5-5.3); SODIUM, SERUM 135 MMOL/L (135-148)
[2017-02-26 06:43] LABS: GLUCOSE, SERUM 124 MG/DL (60-99)
[2017-02-27 05:35] LABS: BASOPHILS 0.3 %; BASOPHILS ABSOLUTE 0.03 10/3/uL (0.0-0.16); EOSINOPHILS 4.4 %; EOSINOPHILS ABSOLUTE 0.48 10/3/uL (0.0-0.53); HEMATOCRIT 31.6 % (36.0-48.0); HEMOGLOBIN 9.5 g/dL (12.0-16.0); IMMATURE GRANULOCYTES 0.4 %; IMMATURE GRANULOCYTES ABSOLUTE 0.04 10/3/uL (0.0-0.11); LYMPHOCYTES ABSOLUTE 1.31 10/3/uL (0.67-4.30); MEAN CORPUS HGB CONC 30.1 g/dL (32.0-36.0); MEAN CORPUSCULAR HEMOGLOB 22.9 pg (26.0-34.0); MEAN CORPUSCULAR VOLUME 76.3 fL (80-100); MEAN PLATELET VOLUME 10.7 fL (9.2-13.0); MONOCYTES 5.6 %; MONOCYTES ABSOLUTE 0.61 10/3/uL (0.21-1.20); NEUTROPHILS 77.3 %; NEUTROPHILS ABSOLUTE 8.46 10/3/uL (2.02-8.40); PLATELET COUNT 415 10/3/uL (150-400); RBC DISTRIBUTION WIDTH 19.6 % (12.0-16.0); RED CELL COUNT 4.14 10/6/uL (4.0-5.6); WHITE BLOOD CELLS 10.9 10/3/uL (4.5-10.5)
[2017-02-27 05:43] LABS: MANUAL DIFF NO %
[2017-02-27 05:46] LABS: BUN (BLOOD UREA NITROGEN) 41 MG/DL (6-23); CALCIUM, SERUM 9.6 MG/DL (8.5-10.4); CHLORIDE, SERUM 93 MMOL/L (96-112); CO2 (CARBON DIOXIDE) 38 MMOL/L (24-34); CREATININE 1.26 MG/DL (0.55-1.02); GFR AFRICAN AMERICAN 55 ML/MIN (>=60); GFR NON AFRICAN AMERICAN 47 ML/MIN (>=60); GLUCOSE, SERUM 135 MG/DL (60-99); SODIUM, SERUM 134 MMOL/L (135-148)
[2017-02-28 06:31] LABS: BASOPHILS 0.5 %; BASOPHILS ABSOLUTE 0.04 10/3/uL (0.0-0.16); EOSINOPHILS 6.2 %; EOSINOPHILS ABSOLUTE 0.54 10/3/uL (0.0-0.53); HEMATOCRIT 30.7 % (36.0-48.0); HEMOGLOBIN 9.4 g/dL (12.0-16.0); IMMATURE GRANULOCYTES 0.2 %; IMMATURE GRANULOCYTES ABSOLUTE 0.02 10/3/uL (0.0-0.11); LYMPHOCYTES 18.4 %; MEAN CORPUS HGB CONC 30.6 g/dL (32.0-36.0); MEAN CORPUSCULAR HEMOGLOB 23.2 pg (26.0-34.0); MEAN CORPUSCULAR VOLUME 75.8 fL (80-100); MEAN PLATELET VOLUME 10.8 fL (9.2-13.0); MONOCYTES ABSOLUTE 0.61 10/3/uL (0.21-1.20); NEUTROPHILS 67.7 %; PLATELET COUNT 407 10/3/uL (150-400); RBC DISTRIBUTION WIDTH 19.9 % (12.0-16.0); RED CELL COUNT 4.05 10/6/uL (4.0-5.6); WHITE BLOOD CELLS 8.7 10/3/uL (4.5-10.5)
[2017-02-28 06:33] LABS: MANUAL DIFF NO %
[2017-02-28 06:42] LABS: BUN (BLOOD UREA NITROGEN) 39 MG/DL (6-23); CALCIUM, SERUM 9.5 MG/DL (8.5-10.4); CHLORIDE, SERUM 92 MMOL/L (96-112); CO2 (CARBON DIOXIDE) 40 MMOL/L (24-34); GFR AFRICAN AMERICAN 65 ML/MIN (>=60); GFR NON AFRICAN AMERICAN 56 ML/MIN (>=60); SODIUM, SERUM 136 MMOL/L (135-148)
[2017-02-28 06:43] LABS: GLUCOSE, SERUM 83 MG/DL (60-99)
[2017-05-05] MEDS ORDERED: ARIMIDEX1 PO (17:48)
[2017-05-05] MEDS ORDERED: ASAB PO (17:50)
[2017-05-05] MEDS ORDERED: BUM2 PO (17:51)
[2017-05-05] MEDS ORDERED: COREG6 PO (17:52)
[2017-05-05] MEDS ORDERED: KRISTALOSE20 GM PO (17:54)
[2017-05-05] MEDS ORDERED: NORCO1 TA1 PO (17:56)
[2017-05-05] MEDS ORDERED: THERA M PLUS PO (17:59)
[2017-06-01] MEDS ORDERED: LANTUSCART SC (13:45)
[2017-06-01] MEDS ORDERED: COREG12 PO (13:45)
[2017-06-01] MEDS ORDERED: TESS PO (13:46)
[2017-06-01] MEDS ORDERED: CONSTULOSE PO (13:56)
[2017-06-02] MEDS ORDERED: BEN25 PO (08:29)
[2017-06-02] MEDS ORDERED: LIPITOR40 (13:40)
[2017-06-02] MEDS ORDERED: NTG150 (13:40)
[2017-06-02] MEDS ORDERED: PLAVIX PO (13:40)
== END 2017-02-28 17:22 | DRG 628 ==
LOC: ER 22:22 → 5SO 02-17 00:59
PROVIDERS: Hospitalist; Internal Medicine; Internal Medicine Cardiovascular Disease; Podiatrist
PROC: 0QBN0ZZ Excision of Right Metatarsal, Open Approach (ICD-10-PCS; principal; 2017-02-18 14:15)
DX: E11.621 Type 2 diabetes mellitus with foot ulcer (principal); I50.23 Acute on chronic systolic (congestive) heart failure; M86.8X7 Other osteomyelitis, ankle and foot; E11.22 Type 2 diabetes mellitus with diabetic chronic kidney disease; I42.9 Cardiomyopathy, unspecified; N17.9 Acute kidney failure, unspecified; N18.3 Chronic kidney disease, stage 3 (moderate); Z68.42 Body mass index [BMI] 45.0-49.9, adult; L03.113 Cellulitis of right upper limb; I13.0 Hypertensive heart and chronic kidney disease with heart failure and stage 1 through stage 4 chronic kidney disease, or unspecified chronic kidney disease; K76.0 Fatty (change of) liver, not elsewhere classified; L97.519 Non-pressure chronic ulcer of other part of right foot with unspecified severity; M17.9 Osteoarthritis of knee, unspecified; Z88.2 Allergy status to sulfonamides; Z83.3 Family history of diabetes mellitus; Z82.49 Family history of ischemic heart disease and other diseases of the circulatory system; Z79.899 Other long term (current) drug therapy; Z79.4 Long term (current) use of insulin; E66.01 Morbid (severe) obesity due to excess calories; Z79.82 Long term (current) use of aspirin; Z89.431 Acquired absence of right foot
CPT/HCPCS: 71010; 73630-RT; 73718-RT; 74176; 80048; 80053; 80202; 81001; 82140; 82533; 82962; 83036; 83735; 83880; 84100; 84443; 84484; 85025; 85610; 85652; 85730; 87015; 87040; 87070; 87075; 87077; 87086; 87102; 87116; 87186; 87205; 87493; 87493-59; 93925; 93970; 93971; 94640; 96374; 97116-GP; 97163-GP; 97530-GP; 99284; A9270-GY; J0295; J2250; J2370; J2405; J2543; J3010; J3370